=== PATIENT | male | born 1995 | race African-American/Black ===

== ENCOUNTER 2016-12-02 21:14 | Emergency (ER) | payer BC ==
[2016-12-02 21:37] VITALS: RESP 20
--- NOTE | 2016-12-02 22:05 | XR ---
EXAMINATION TYPE: XR wrist limited LT DATE OF EXAM: 12/02/2016 COMPARISON: NONE HISTORY: Pain TECHNIQUE: 2 view left wrist FINDINGS: No acute fractures evident. Soft tissues have mild prominence. IMPRESSION: 1. Mild soft tissue prominence. No acute osseous abnormality is evident. Follow-up exam can be perfo rmed 7-10 days from acute trauma for continued pain.
--- NOTE | 2016-12-02 22:26 | ED ---
Upper Extremity HPI - General Chief Complaint: Extremity Injury, Upper Stated Complaint: Wrist Pain Time Seen by Provider: 12/02/16 21:42 Source: patient Mode of arrival: ambulatory Limitations: no limitations - History of Present Illness Initial Comments: This is a 21 year old male with CC of left wrist pain. Patient reports he was lifting boxes at work when he started to notice a pain. Patient states that he noticed some swelling to the wrist as well. Denies any dificulty with range of motion, denies any peripheral paresthias. Patient denies any trauma or falls. PAtietn states that he is right handed. Denies any other symptoms. - Related Data Previous Rx's Medication Instructions Recorded Ibuprofen [Motrin] 600 mg PO Q6HR PRN #20 tab 12/02/16 Allergies Allergy/AdvReac Type Severity Reaction Status Date / Time No Known Allergies Allergy Verified 12/02/16 22:37 Review of Systems ROS Statement: Those systems with pertinent positive or pertinent negative responses have been documented in the HPI. ROS Other: All systems not noted in ROS Statement are negative. Past Medical History Past Medical History: No Reported History History of Any Multi-Drug Resistant Organisms: None Reported Past Surgical History: No Surgical Hx Reported Past Psychological History: No Psychological Hx Reported Smoking Status: Never smoker Past Alcohol Use History: None Reported Past Drug Use History: None Reported General Exam - General Exam Comments Initial Comments: Well appearing 21 year old male, no distress. Limitations: no limitations General appearance: alert, in no apparent distress Head exam: Present: atraumatic, normocephalic, normal inspection Eye exam: Present: normal appearance, PERRL, EOMI. Absent: scleral icterus, conjunctival injection, periorbital swelling ENT exam: Present: normal exam, mucous membranes moist Neck exam: Present: normal inspection. Absent: tenderness, meningismus, lymphadenopathy Respiratory exam: Present: normal lung sounds bilaterally. Absent: respiratory distress, wheezes, rales, rhonchi, stridor Cardiovascular Exam: Present: regular rate, normal rhythm, normal heart sounds. Absent: systolic murmur, diastolic murmur, rubs, gallop, clicks GI/Abdominal exam: Present: soft, normal bowel sounds. Absent: distended, tenderness, guarding, rebound, rigid Extremities exam: Present: normal inspection, full ROM, normal capillary refill. Absent: tenderness, pedal edema, joint swelling, calf tenderness Back exam: Present: normal inspection Neurological exam: Present: alert, oriented X3, CN II-XII intact Psychiatric exam: Present: normal affect, normal mood Skin exam: Present: warm, dry, intact, normal color. Absent: rash Course Vital Signs 12/02/16 12/02/16 21:35 22:35 Temperature 98.6 F 98.1 F Pulse Rate 85 84 Respiratory 20 20 Rate Blood Pressure 137/66 136/78 O2 Sat by Pulse 99 97 Oximetry Medical Decision Making - Medical Decision Making This is a 21 year old male with left wrist pain after lifting boxes at work. No other traumatic injury. He does have some minor swelling over the left wrist. Patient has full range of motion. Patient xray shows no acute abnormalities. Patient likely has wrist sprain. Patient will be givne KEATON wrap and Rx for motrin. REturn parameters and follow up discussed. - Radiology Data Radiology results: report reviewed Wrist Xrays show no acute osseous abnorality. Disposition Clinical Impression: Left wrist sprain Disposition: HOME SELF-CARE Condition: Good Instructions: Wrist Injury (ED) Additional Instructions: Patient has a follow-up with primary care provider. Take anti-inflammatory medicine apply ice over the wrist is much as possible. Wear your Keaton wrap as directed. Prescriptions: Ibuprofen [Motrin] 600 mg PO Q6HR PRN #20 tab PRN Reason: Pain Referrals: None,Stated [Primary Care Provider] - 1-2 days Time of Disposition: 22:25
[2016-12-02 22:37] VITALS: BP 136/78; PULSE 84; TEMP 98.1
--- NOTE | 2016-12-05 04:29 | CDI ---
Dear Johnna Kumar PA-C: Please do addendum History of Present Illness & Physical Examination. Thank you, Lisa Nixon, [employer]. If you have any questions, please contact Early Childhood Education Specialist at [phone]. [facility]
== END 2016-12-02 22:36 | disposition home or self-care (01) ==
LOC: EC 21:14
DX: S63.502A Unspecified sprain of left wrist, initial encounter (principal); X50.9XXA Other and unspecified overexertion or strenuous movements or postures, initial encounter; Y93.89 Activity, other specified; Y92.69 Other specified industrial and construction area as the place of occurrence of the external cause
CPT/HCPCS: 99283